=== PATIENT | male | born 2000 | race Caucasian/White ===

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

== ENCOUNTER 2018-08-19 16:18 | Emergency (ER) | payer BC ==
[2018-08-19 16:24] VITALS: BP 139/64
--- NOTE | 2018-08-19 16:52 | CT Report ---
Reason: fall off horse 8 days ago, continues ALOC Procedure Date: 08/19/2018 Accession Number: [id number] / [id number] Procedure: CT - HEAD WO CPT Code: FULL RESULT: EXAM: CT HEAD EXAM DATE: 08/19/2018 04:40 PM. CLINICAL HISTORY: Fall off horse 8 days ago, continues ALOC. COMPARISON: None. TECHNIQUE: Multiaxial CT images were obtained from the foramen magnum to the vertex. Reformats: Sagittal and coronal. IV contrast: None. In accordance with CT protocol optimization, one or more of the following dose reduction techniques were utilized for this exam: automated exposure control, adjustment of mA and/or KV based on patient size, or use of iterative reconstructive technique. FINDINGS: Parenchyma: No intraparenchymal hemorrhage. No evidence of mass, midline shift, or CT findings of infarction. Leos-white differentiation is distinct. Extraaxial Spaces: Normal for age. No subdural or epidural collections. Ventricles: Normal in size and position. Sinuses and Orbits: Imaged paranasal sinuses, orbits, and mastoids show no significant abnormality. Bones: Unremarkable. Other: None. IMPRESSION: Normal head CT. RADIA
--- NOTE | 2018-08-19 16:55 | ED Physician Documentation ---
PD HPI HEAD INJURY - Stated complaint Stated Complaint: HEAD INJURY - Chief complaint Chief Complaint: Trauma Hd/Nk - History obtained from History obtained from: Patient, Family - History of Present Illness Mechanism of head injury: Fell (off horse) Where head injury occurred: Home Timing - onset: How many days ago (8) Pain level max: 6 Pain level now: 2 Location of injury: Back Quality of pain: Pain, Aching Associated symptoms: LOC (8 mins per family), AMS (states slow to respond since the event). No: Nausea / vomiting, Neck pain, Paresthesias, Seizures, Ear drainage, Nasal drainage Symptoms improve with: Rest Symptoms worsen with: Movement Contributing factors: No: Anticoagulated, Intoxicated Similar symptoms before: Has not had sx before Recently seen: Not recently seen - Additional information Additional information: Patient was riding a horse approximately 8 days ago, when he fell off the horse striking his head. He was unconscious for approximately 8 minutes per his niece. Did not tell his parents until today. They state he has been acting slow since the event. No seizures. Did not seek medical attention after the event. Review of Systems Ten Systems: 10 systems reviewed and negative Constitutional: denies: Fever, Chills Eyes: reports: Loss of vision (States his left eye felt "fuzzy" after the event. Normal now). denies: Decreased vision, Photophobia Ears: denies: Ear pain Nose: denies: Rhinorrhea / runny nose, Congestion Throat: denies: Sore throat Cardiac: denies: Chest pain / pressure Respiratory: denies: Cough GI: denies: Abdominal Pain, Nausea, Vomiting, Diarrhea Skin: denies: Rash Musculoskeletal: denies: Neck pain, Back pain Neurologic: denies: Focal weakness, Numbness PD PAST MEDICAL HISTORY - Past Medical History Cardiovascular: None Respiratory: None GI: None - Past Surgical History Past Surgical History: No - Present Medications Home Medications: Ambulatory Orders Medication Instructions Recorded Confirmed Ondansetron Odt [Zofran] 4 mg TL Q6H PRN #10 tablet 08/19/18 - Allergies Allergies/Adverse Reactions: Allergies Allergy/AdvReac Type Severity Reaction Status Date / Time No Known Drug Allergies Allergy Verified 08/19/18 16:24 - Social History Does the pt smoke?: No Smoking Status: Never smoker Does the pt drink ETOH?: No Does the pt have substance abuse?: No - Immunizations Immunizations are current?: Yes PD ED PE NORMAL - Vitals Vital signs reviewed: Yes - General General: Alert and oriented X 3, No acute distress, Well developed/nourished, Other (slightly slow to respond to questions) - HEENT HEENT: Atraumatic, PERRL, EOMI, Ears normal, Moist mucous membranes, Pharynx benign - Neck Neck: Supple, no meningeal sign, No bony TTP - Cardiac Cardiac: RRR - Respiratory Respiratory: No respiratory distress, Clear bilaterally - Abdomen Abdomen: Soft, Non tender, Non distended - Back Back: No spinal TTP - Derm Derm: Warm and dry - Extremities Extremities: Normal ROM s pain - Neuro Neuro: Alert and oriented X 3, twill cutter 2-12 intact, No motor deficit, No sensory deficit, Normal speech Eye Opening: Spontaneous Motor: Obeys Commands Verbal: Oriented GCS Score: 15 Results - Vitals Vitals: Vital Signs - 24 hr /08/04 16:20 Temperature 37.3 C Heart Rate 68 Respiratory 18 Rate Blood Pressure 139/64 H O2 Saturation 100 Oxygen O2 Source Room air - Rads (name of study) head CT Radiology: Prelim report reviewed, EMP read contemporaneously, See rad report (Normal) PD MEDICAL DECISION MAKING - ED course Complexity details: reviewed results, re-evaluated patient, considered differential, d/w patient, d/w family ED course: Patient with a concussive head injury. No acute findings on head CT. Head injury instructions given at bedside. Well-appearing, nontoxic. Afebrile. No evidence of meningitis, encephalitis. No intracranial hemorrhage or skull fracture. Patient and family counseled regarding signs and symptoms for which I believe and urgent re-evaluation would be necessary. Patient with good understanding of and agreement to plan and is comfortable going home at this time This document was made in part using voice recognition software. While efforts are made to proofread this document, sound alike and grammatical errors may occur. Departure - Departure Disposition: 01 Home, Self Care Clinical Impression: Concussion Qualifiers: Encounter type: initial encounter Loss of consciousness presence/duration: with LOC of 30 min or less Qualified Code(s): S06.0X1A - Concussion with loss of c onsciousness of 30 minutes or less, initial encounter Condition: Good Instructions: ED Concussion Follow-Up: your,doctor in 1week [Other] Prescriptions: Ondansetron Odt [Zofran] 4 mg TL Q6H PRN #10 tablet PRN Reason: Nausea / Vomiting Comments: Your head CT does not show any acute abnormalities today. Return if you worsen. Follow-up with your doctor for further evaluation and care. The symptoms may last for several weeks. Discharge Date/Time: 08/19/18 17:06
== END 2018-08-19 17:06 | disposition home or self-care (01) ==
LOC: ED 16:18
DX: S06.0X1A Concussion with loss of consciousness of 30 minutes or less, initial encounter (principal); V80.010A Animal-rider injured by fall from or being thrown from horse in noncollision accident, initial encounter; Y92.009 Unspecified place in unspecified non-institutional (private) residence as the place of occurrence of the external cause
CPT/HCPCS: 70450; 99283